=== PATIENT | male | born 1980 | race Caucasian/White ===

== ENCOUNTER 2020-12-22 15:15 | Emergency (ER) | payer OTHER ==
[~2020-12-22 15:15] MED LIST: ASPIRIN CHEWABL81 MG PO; AUGMENTIN 875-1 EACH PO; BENTYL 20MG TAB20 MG PO; ZOFRAN ODT 4 MG4 MG SL
[2020-12-22] MEDS ORDERED: IBUPROFEN800 MG PO (19:24)
[2020-12-22] MEDS ORDERED: MEDROL DOSEPAK 24 MG PO (19:24)
[2020-12-22] MEDS ORDERED: CYCLOBENZAPRINE10 MG PO (19:24)
== END 2020-12-22 20:00 | disposition home or self-care (01) ==
LOC: ER1 15:15
DX: M25.78 Osteophyte, vertebrae (principal); M54.16 Radiculopathy, lumbar region; Z90.89 Acquired absence of other organs; Z88.8 Allergy status to other drugs, medicaments and biological substances; F17.210 Nicotine dependence, cigarettes, uncomplicated
CPT/HCPCS: 72131; 81001; 96372; 99284; J1885; J2360

== ENCOUNTER → 2021-03-23 | Outpatient (CLI) | payer OTHER ==
[~2021-03-23] MED LIST changes: +CYCLOBENZAPRINE10 MG PO; +IBUPROFEN800 MG PO; +MEDROL DOSEPAK 24 MG PO
== END ==
LOC: KOH-I 11:30
DX: R44.0 Auditory hallucinations (principal); R27.8 Other lack of coordination; R73.9 Hyperglycemia, unspecified; R44.8 Other symptoms and signs involving general sensations and perceptions
CPT/HCPCS: 70450

== ENCOUNTER → 2021-06-05 | Outpatient (CLI) | payer OTHER | LOC: KOH-I 14:55 | DX: M25.551 Pain in right hip (principal) | CPT/HCPCS: 72170; 73502 ==

== ENCOUNTER 2021-06-28 14:38 | Emergency (ER) | payer OTHER ==
[2021-06-28 16:33] LABS: HEMOGLOBIN 15.5 gm/dl (14.0-17.5); RED BLOOD COUNT 4.9 M/UL (4.20-5.50); WHITE BLOOD COUNT 8.2 K/UL (4.5-11.0)
[2021-06-28 16:47] LABS: BUN/CREATININE RATIO 11 (0-10)
[2021-06-28] MEDS ORDERED: IBUPROFEN600 MG PO (17:20)
== END 2021-06-28 17:27 | disposition home or self-care (01) ==
LOC: ER1 14:38
PROVIDERS: Nurse Practitioner
DX: M54.50 Low back pain, unspecified (principal); R10.814 Left lower quadrant abdominal tenderness; Z88.8 Allergy status to other drugs, medicaments and biological substances; F17.210 Nicotine dependence, cigarettes, uncomplicated
CPT/HCPCS: 80053; 81001; 85025; 96374; 96375; 99284; J1170; J2405; J7030

== ENCOUNTER 2021-07-03 15:53 | Emergency (ER) | payer OTHER ==
[~2021-07-03 15:53] MED LIST changes: +IBUPROFEN600 MG PO
[2021-07-03] MEDS ORDERED: CYCLOBENZAPRINE5 MG PO (17:51)
[2021-07-03] MEDS ORDERED: MOBIC15 MG PO (18:02)
== END 2021-07-03 18:18 | disposition home or self-care (01) ==
LOC: ER1 15:53
DX: M25.78 Osteophyte, vertebrae (principal); M54.42 Lumbago with sciatica, left side; G89.29 Other chronic pain; E11.9 Type 2 diabetes mellitus without complications; F17.200 Nicotine dependence, unspecified, uncomplicated; Z88.6 Allergy status to analgesic agent
CPT/HCPCS: 96372; 99283; J1885

== ENCOUNTER 2022-02-04 15:10 | Emergency (ER) | payer OTHER ==
[~2022-02-04 15:10] MED LIST changes: +CYCLOBENZAPRINE5 MG PO; +MOBIC15 MG PO
[2022-02-04] MEDS ORDERED: PERCOCET 5/325 T1 EA PO (19:37)
== END 2022-02-04 19:55 | disposition home or self-care (01) ==
LOC: ER1 15:10
DX: M54.50 Low back pain, unspecified (principal); G89.29 Other chronic pain; F17.210 Nicotine dependence, cigarettes, uncomplicated; Z88.6 Allergy status to analgesic agent
CPT/HCPCS: 72110; 96372; 99283; J1100

== ENCOUNTER 2022-03-11 15:53 | Emergency (ER) | payer OTHER ==
[~2022-03-11 15:53] MED LIST changes: +PERCOCET 5/325 T1 EA PO
[2022-03-11] MEDS ORDERED: MEDROL DOSEPAK 24 MG PO (17:10)
[2022-03-11] MEDS ORDERED: NORFLEX 100 MG100 MG PO (17:10)
[2022-03-11] MEDS ORDERED: VOLTAREN ARTHRI20 GM TP (17:10)
== END 2022-03-11 17:31 | disposition home or self-care (01) ==
LOC: ER1 15:53
DX: M54.50 Low back pain, unspecified (principal); G89.29 Other chronic pain; F17.210 Nicotine dependence, cigarettes, uncomplicated
CPT/HCPCS: 96372; 99283; J1885